=== PATIENT | female | born 1990 | race Caucasian/White ===

== ENCOUNTER 2017-10-02 06:55 | Emergency (ER) | payer MEDICAID ==
[2017-10-02 07:57] VITALS: BMI 32.0
[2017-10-02] MEDS ORDERED: Lactated Ringer's 1,000 ML IV SCH (08:15)
[2017-10-02] MEDS: Lactated Ringer's 1,000 ML IV SCH ×3 (09:00→12:35)
[2017-10-02 10:12] LABS: SQUAMOUS EPITHIAL 1 /hpf (0-5); URINE BACTERIA RARE (<OCC); URINE BILIRUBIN NEGATIVE (NEGATIVE); URINE BLOOD SMALL (NEGATIVE); URINE CLARITY SLIGHTY-CLOUDY (Clear); URINE COLOR STRAW (YELLOW); URINE GLUCOSE (UA) NEG (Normal); URINE LEUKOCYTE ESTERASE NEG Leu/uL (Negative); URINE NITRATE NEGATIVE (NEGATIVE); URINE PROTEIN NEGATIVE (NEGATIVE); URINE UROBILINOGEN 0.2-1.0 mg/dL (0.2-1.0)
--- NOTE | 2017-10-02 10:58 | US ---
PROCEDURE: Limited obstetrical ultrasound examination HISTORY: COMPARISON: Not available TECHNIQUE: Examination was performed both transabdominal and transvaginal FINDINGS: There is a single live intrauterine gestation in cephalic presentation. heart rate is 131 beats per minute. A normal anterior placenta is identified. There is no evidence placenta previa. A grossly normal quantity of amniotic fluid is visualized. The cervix is closed and measures 4.4 cm in length. IMPRESSION: Limited examination as per requesting physician. Cervical length 4.4 cm and closed. Single live intrauterine gestation in cephalic presentation. Anterior placenta. No previa. heart rate 131.
--- NOTE | 2017-10-02 12:24 | OBDCSUM ---
Datetime: 10/02/2017 11:58 Discharged to, Provider: Home Follow up at, Provider: with gilbert Mackay Disch Instr Activity: Normal activity Disch Instr Diet: Regular Discharge Diagnosis, Provider: False Labor - Undelivered Discharge Time: 10/02/2017 11:59 Follow up in weeks, Provider: call for appt Discharge Comment, Provider: SHe has no more symtpoms; wants to eat copy of labs/sono given to pt. Will follow up with PMD Oct 08 as scheduled
[2017-10-02 17:25] VITALS: BP 102/59; PULSE 110; RESP 17; TEMP 98.3; O2SAT 99
--- NOTE | 2017-10-03 07:54 | OBHP ---
Datetime: 10/02/2017 08:26 IP Adm Impression: , intrauterine ; No Active Labor IP Admit Plan: Observation/Evaluation Admit Comment, IP Provider: 27 yo F IUP at 26.2 weeks presents c/o abdominal pain, pte was seen in [place] for abd pain and dizziness, also reports vomits and diarrhea, denies sick contacts. No vb , ctx, lof, +FM. Also reports acid reflux. Denies headache, chest pain, sob, no urinary symptoms. PNC: pte lives in [place]. No med records. PObH PGyn: none PMH: none FMH: Mother HTN, DM Allergies NKDA Meds: none SH: -tobacco, etoh, rec drugs. VS: wnl FHR A/P 27 yo F IUP at 26.2 weeks presents c/o abdominal pain, dizzines, vomiting and diarrhea. Observation and maternal monitoring IV fluids Zofran Case discussed w/ OB power generation technician hospitalist. Ion Navarro PGY 1 [facility]. Pt seen and examined again after she was seen by Dr Quezada. Agree with no te (let entry for Oct 02) MAHNDO Pelvic Type - PN: Not Done Extremities - PN: Normal Abdomen - PN: Normal Back - PN: Not Done Breast - PN: Not Done Lungs - PN: Normal Heart - PN: Normal Thyroid - PN: Not Done Neurologic - PN: Normal HEENT - PN: Normal General - PN: Normal EGA AdmitDate IP: 26.2 Vital Signs Provider: Reviewed; Within Normal Limits IP Chief Complaint: Other FHR Category Provider Fetus A: Category I NICHD Decel Fetus A IP Provider: None Dilatation, Provider: 0 Effacement, Provider: thick Station, Provider: high Genitourinary Exam: Not Done DTRs - PN: Not Done
--- NOTE | 2017-10-03 07:56 | OBDCSUM ---
Datetime: 10/02/2017 11:58 Discharge Diagnosis Prov Other: abd pain/Nausea vomitiing
== END 2017-10-02 12:15 | disposition home or self-care (01) ==
LOC: H.EROB2 06:55
DX: O21.0 Mild hyperemesis gravidarum (principal); O26.92 Pregnancy related conditions, unspecified, second trimester; R10.2 Pelvic and perineal pain; R19.7 Diarrhea, unspecified; R42 Dizziness and giddiness; Z3A.26 26 weeks gestation of pregnancy
CPT/HCPCS: 76817; 81003; 87086; 96374; 99283; J7120